=== PATIENT | female | born 1975 ===

== ENCOUNTER 2017-07-26 22:51 | Emergency (ER) | payer MEDICAID ==
[~2017-07-26] VITALS: Ht 152.4 cm; Wt 6.8 kg
[~2017-07-26 22:51] MED LIST: BLOO-1504 MC; BUPR1FIL3 SL; CIPR-231 PO; INSU100V28 SUBQ; INSU100V7 SUBQ; LISI-610 PO; ONDA4TAB9 PO
[2017-07-26 22:53] VITALS: BP 169/106; PULSE 114; RESP 18; O2SAT 99
--- NOTE | 2017-07-26 23:49 | ED.REPORT ---
HPI-Extremity Problem Lower Date of Service Jul 26, 2017 ED Provider: David Oscar DO Pt is a 41 year old female with a history of DM and HTN who presents to the ED complaining of left shoulder pain after a ground level fall. She c/o associated right 5th toe pain. She denies any other symptoms. The pt reports that she accidentally stubbed her right-sided 5th toe on wood. Nursing Notes Stated Complaint: STUBBED RIGHT BIG TOE, POSSIBLY BROKEN Chief Complaint: Extremity Trauma Nursing Notes Reviewed: Yes Allergies: Coded Allergies: promethazine HCl (Verified Allergy, Unknown, legs shaking, 07/26/17) insulin lispro (Verified Adverse Reaction, Intermediate, 07/26/17) restless legs Scheduled Blood Sugar Diagnostic (Test Strips) 1 Each Strip 1 EACH MC BIDAC Ciprofloxacin (Cipro) 500 Mg Tablet 500 MG PO Q12H Insulin Glargine (Lantus U100 Insulin Vial) 100 Unit/Ml Vial 35 UNIT SUBQ BID Insulin Regular, Human (HUMulin-R U100 Insulin Vial) 100 Unit/1 Ml Vial 0 UNIT SUBQ ACHS * Medium Dose Insulin Algorithm * ConditionDose/RouteInstruction BG 141- 199 MG/dL1 Unit BG 200-249 MG/dL3 Units BG 250-299 MG/dL5 Units BG 300-349 MG /dL7 Units BG > 349 MG/dL 8 Units and call your doctor Lisinopril (Zestril) 10 Mg Tablet 10 MG PO DAILY Scheduled PRN Buprenorphine HCl/Naloxone HCl (Suboxone 8 mg-2 mg Sl Film) 1 Each Film 1 EACH SL DAILY PRN PRN For Pain Ondansetron ODT (Zofran ODT) 4 Mg Tablet 4 MG PO Q4H PRN PRN For Nausea General Time Seen by MD: 23:49 Chief Complaint Other (left shoulder pain) Hx Obtained From: Patient Arrived By: Walk-in Onset Occurred: Just prior to arrival Symptom Duration: Since onset Caused by: Accidental Location: : Toe right 5 Quality: Painful Severity: Current: Moderate Severity: Maximum: Moderate Recent Healthcare: No recent doctor visit, No recent hospitalization Similar Sx Previous: No Past Medical History Past Medical History on Suboxone Reports: Diabetes mellitus, Hypertension Past Surgical History Reports: Cholecystectomy Reports: Tubal ligation Smoking History Never Smoker Social History Alcohol Use: Denies alcohol use 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 Respiratory: Denies: Non-productive cough, Shortness of breath Physical Exam Initial Vital Signs Vital Signs (First) Date Time Temp Pulse Resp B/P Pulse Ox O2 Delivery O2 Flow Rate FiO2 07/26/17 22:53 36.9 114 18 169/106 99 Room Air Initial VS: Reviewed Head / Eyes: Atraumatic, Normocephalic Neck: Supple, Full range of motion Respiratory: Breath sounds normal, Clear to auscultation, No respiratory distress Cardiovascular: Regular rate & rhythm, Heart sounds normal, Intact distal pulses Skin: Warm, Dry, No cyanosis Neurologic: Alert, Oriented, Nonfocal Psychiatric: Mood/affect normal, Behavior normal Lower Extremity / Pelvis / MS: Neurologic intact, Vascular intact Ankle / Foot: Neurologic intact, Vascular intact No obvious deformity, but tender to palpation. Non-tender to high foot, midfoot, or forefoot. General/Constitutional: Awake, Alert Upper Extremity / MS: Neurologic intact, Vascular intact Tender left shoudler Interpretation & Diagnostics X-Ray Interpretation Xray Interpretation: Phalanx fracture X-Ray Ordered: Foot right Interpretation / Wet Read by: Wet read ED physician Xray Interpretation: Negative X-Ray Ordered: Shoulder left Interpretation / Wet Read by: Wet read ED physician Re-Eval/Medical Decision Med Decision/Clinical Course The x-ray looks possibly subluxed and possibly fracture. On physical exam however there is no evidence of a subluxation. I can flex and extend at the DIP joint. This is not really where she is tender. Is more the proximal aspect of the proximal phalanx. Either way would attempt any further reduction at this time. We omayra taped her. She is put in a cast shoe. We will give her crutches. Referral to orthopedics. Source of Hx: Old records Re-Evaluation/Progress : Time of Eval: 00:13 Re-Evaluation/Progress Note: Informed pt of toe fracture indicated on x-ray and plan to omayra tape her toes together. Informed pt of plan to treat with 60mg of toradol, as well as plan to discharge with crutches and a boot. Informed pt of plan for discharge. Pt understands and agrees with plan for discharge. F/U instructions and RTER warnings given. All questions addressed. Counseled Regarding: Diagnosis, Need for follow-up, When/why to return to ED Discharge & Departure Impression: Primary Impression: Toe fracture Encounter type: initial encounter Toe: lesser toe Fracture type: closed Phalanx: unspecified phalanx Physeal involvement: unspecified Laterality: right Qualified Code: S92.591A - Other fracture of right lesser toe(s), initial encounter for closed fracture Additional Impression: Shoulder contusion Encounter type: initial encounter Laterality: left Qualified Code: S40.012A - Contusion of left shoulder, initial encounter Disposition: Home Discharge Condition All VS Reviewed: Yes Condition: Stable Patient Instructions: Contusion in Adults (ED), Crutch Instructions (ED), Toe Fracture (ED) Additional Instructions: Keep your toes omayra taped together and use the crutches. The x-ray of your shoulder didn't show any evidence of a fracture. Call the referral orthopedics or your primary care provider on Saturday for a follow up appointment next week. Return to the Emergency Department for any new or concerning symptoms. Referrals: [facility] (PCP) Manny Hughes Attestation Portions of this note were transcribed by Reyna Pollock. I, Dr. Oscar personally performed the history, physical exam and medical decision-making; I reviewed and confirmed the accuracy of the information in the transcribed note. Signed by : Raysa Pereira, 07/26/17. copies to: Manny Hughes DO; [facility] David Oscar DO Jul 26, 2017 23:49 Reyna Richter Jul 27, 2017 00:02
[2017-07-27 01:06] VITALS: PULSE 114; RESP 18; O2SAT 99
--- NOTE | 2017-07-27 09:16 | DRSVH ---
PROCEDURE: X-RAY TOES, TWO VIEWS INDICATIONS: Stubbed toe TECHNIQUE: 3 views of the fifth toe(s) acquired. COMPARISON: None. FINDINGS: Bones: There is a subluxed appearance of the DIP joint of the fifth digit. No visualized fracture. Soft tissues: No suspicious soft tissue densities. IMPRESSION: Subluxed fifth digit DIP joint possibly related to recent trauma. No visualized fracture. Dictated by: Kristi Strong M.D. on 07/27/2017 at 9:12 Approved by: Kristi Strong M.D. on 07/27/2017 at 9:14
--- NOTE | 2017-07-27 09:20 | DRSVH ---
PROCEDURE: X-RAY LEFT SHOULDER, MINIMUM TWO VIEWS ([id number]) INDICATIONS: fall and pain TECHNIQUE: 3 views of the shoulder were acquired. COMPARISON: None. FINDINGS: Bones: No fractures or dislocations. No suspicious bony lesions. Visualized ribs appear intact. Soft tissues: No suspicious soft tissue calcifications. IMPRESSION: No visualized acute fracture or dislocation. However, if clinical concern and/or pain pe rsist, short interval imaging followup in 7-10 days is recommended, as occult injury cannot be defini tively excluded. Dictated by: Kristi Strong M.D. on 07/27/2017 at 9:17 Approved by: Kristi Strong M.D. on 07/27/2017 at 9:18
== END 2017-07-27 01:07 | disposition home or self-care (01) ==
LOC: SED 22:51
DX: S92.531A Displaced fracture of distal phalanx of right lesser toe(s), initial encounter for closed fracture (principal); S40.012A Contusion of left shoulder, initial encounter; W18.39XA Other fall on same level, initial encounter; Y93.9 Activity, unspecified; Y92.9 Unspecified place or not applicable; Y99.8 Other external cause status; I10 Essential (primary) hypertension; E11.9 Type 2 diabetes mellitus without complications; Z79.4 Long term (current) use of insulin; Z88.8 Allergy status to other drugs, medicaments and biological substances
CPT/HCPCS: 73030; 73660; 96372; 99284; J1885